=== PATIENT | female | born 1965 | race Caucasian/White ===

== ENCOUNTER 2018-09-08 10:25 | Emergency (ER) | payer MEDICAID, OTHER ==
[~2018-09-08] VITALS: Ht 160 cm; Wt 73.5 kg
[~2018-09-08 10:25] MED LIST: AMOX-422 PO; CALC-1197 PO; DOCU100C40 PO; ESCI10TA PO; MELO7.5T12 PO; SPIIN INH; TRAM50TA2 PO
[2018-09-08 11:05] VITALS: BP 90/52
[2018-09-08] MEDS ORDERED: cyclobenzaprine 10mg tablet PO ONE (12:20)
[2018-09-08] MEDS ORDERED: ketorolac trometh. 30mg/ml inj. IM ONE (12:20)
== END 2018-09-08 13:44 | disposition home or self-care (01) ==
LOC: ER 10:26
DX: M54.41 Lumbago with sciatica, right side (principal); G89.29 Other chronic pain; J44.9 Chronic obstructive pulmonary disease, unspecified; K21.9 Gastro-esophageal reflux disease without esophagitis; F32.9 Major depressive disorder, single episode, unspecified; Z98.890 Other specified postprocedural states; Z98.51 Tubal ligation status; Z56.0 Unemployment, unspecified; Z88.2 Allergy status to sulfonamides; Z88.5 Allergy status to narcotic agent; Z88.6 Allergy status to analgesic agent; Z88.1 Allergy status to other antibiotic agents; Z79.899 Other long term (current) drug therapy
CPT/HCPCS: 72100; 96372; 99283; J1885